=== PATIENT | female | born 1955 | race Caucasian/White ===

== ENCOUNTER 2016-08-03 08:08 | Emergency (ER) | payer OTHER ==
[~2016-08-03] VITALS: Ht 177.8 cm; Wt 85.0 kg
[~2016-08-03 08:08] MED LIST: ENOX40DI8 SUBQ; KLO5T PO; OXYC-466 PO; POLY17PO6 PO; diphenHYDramine PO
[2016-08-03 08:30] VITALS: BP 142/96; PULSE 72; RESP 14; O2SAT 99
--- NOTE | 2016-08-03 08:39 | ED.REPORT ---
HPI-Extremity Problem Lower Date of Service August 03, 2016 ED Provider: Masood Grant MD 61 year old female presents to the ER complaining of a month of right lower extremity pain and swelling. She reports that she had a bad fracture in the affected leg requiring surgery about a year ago, and later developed a blood clot in the leg. At that time she was started on anticoagulant therapy, but admits that she discontinued use out of her anticoagulants. Patient also reports blood clot in her upper extremity secondary to IV placement in the past. She denies fever, chest pain and difficulty breathing, and current anticoagulant use. Recently she was seen by her PCP for similar and was told to have a Venous Doppler done yesterday to rule out DVT, but she missed her appointment. Nursing Notes Stated Complaint: POSS BLOOD CLOT IN RT LEG Chief Complaint: Extremity Trauma Nursing Notes Reviewed: Yes Allergies: Coded Allergies: No Known Allergies (Unverified , 07/30/15) Scheduled Cholecalciferol (Vitamin D3) (Vitamin D) 1,000 Unit Capsule 1,000 UNIT PO DAILY General Time Seen by MD: 08:39 Chief Complaint Other (Right Leg Swelling) Hx Obtained From: Patient Arrived By: Walk-in Onset Occurred: More than a week ago... (1 month) Symptom Duration: Since onset Associated with: Denies: Chest pain, Fever Pertinent Negative: Pt denies other symptoms Similar Sx Previous: Yes Past Medical History Past Medical History Blood clot in the right lower extremity following fracture repair Blood clot in the upper extremity secondary to IV placement Past Surgical History Right Leg Fracture Smoking History Unknown if Ever Smoker Social History Drug Use: Denies drug use Ambulatory Status Independent Review of Systems Constitutional: Denies: Chills, Fever Musculoskeletal: Reports: Extremity pain (Right leg), Extremity swelling ( Right Leg), Denies: Joint pain, Lumbar pain, Neck pain Complete sys rev & neg: except as marked. Respiratory: Denies: Non-productive cough, Shortness of breath Cardiovascular: Denies: Chest pain, Palpitations Physical Exam Initial Vital Signs Vital Signs (First) Date Time Temp Pulse Resp B/P Pulse Ox O2 Delivery O2 Flow Rate FiO2 08/03/16 08:30 36.6 72 14 142/96 99 Room Air Initial VS: Reviewed General/Constitutional: Well-developed, Well-nourished Head / Eyes: Atraumatic, Normocephalic, PERRL Neck: Supple, Non-tender, Full range of motion Respiratory: Breath sounds normal, Clear to auscultation, No respiratory distress Cardiovascular: Regular rate & rhythm, Heart sounds normal, Intact distal pulses Upper Extremities: Vascular intact, Neuro intact, No swelling, No tenderness Skin: Warm, Dry, No cyanosis Neurologic: Alert, Oriented, Nonfocal Psychiatric: Mood/affect normal, Behavior normal, Normal thought content Lower Extremity / Pelvis / MS: Full range of motion, Neurologic intact, Vascular intact Right Leg / Calf: Positive: Swelling present..., Tenderness present... ( medially) Diffuse non-pitting edema of the Right leg. Interpretation & Diagnostics US VEINOUS LEG DUPLEX UNILATERAL, RIGHT IMPRESSION: No evidence of deep venous thrombosis. Dictated by: Marco Cuenca M.D. on 08/03/2016 at 10:30 Approved by: Marco Cuenca M.D. on 08/03/2016 at 10:32 Re-Eval/Medical Decision Med Decision/Clinical Course 61-year-old female started DVT is presenting with right leg pain times one month. Ultrasound negative for DVT. There is no trauma. She has diffuse medial chiang, calf tenderness. Mild. Recommend ibuprofen and follow-up with primary doctor. No chest pain or shortness of breath. Return precautions given. Source of Hx: Old records Re-Evaluation/Progress : Time of Eval: 09:55 Re-Evaluation/Progress Note: Discussed lab and imaging results and plan to discharge. Patient is amenable to the plan. Return precautions given. All other questions addressed. Counseled Regarding: Diagnosis, Lab results, Need for follow-up, When/why to return to ED Discharge & Departure Impression: Primary Impression: Leg pain Disposition: Home Discharge Condition All VS Reviewed: Yes Condition: Stable Patient Instructions: Deep Vein Thrombosis Prevention (DC) Additional Instructions: Your workup today is reassuring. Your ultrasound does not indicate signs of blood clot in your leg. Wear compression stockings. Follow-up with your primary care provider in 1-2 days. Take ibuprofen as directed for pain. Return to the ER if you develop new or worsening pain or swelling, chest pain, cough, shortness of breath, or any other concerning symptoms. Referrals: Airam Shah (PCP) Scribe Attestation Portions of this note were transcribed by Ayo Santacruz. IDr. Grant, personally performed the history, physical exam and medical decision-making; I reviewed and confirmed the accuracy of the information in the transcribed note. Signed by: Shyla Arshad, 08/03/2016 at 11:03 copies to: Airam Shah Ben M MD August 03, 2016 08:39 AOY SANTACRUZ August 03, 2016 08:46
[2016-08-03] MEDS ORDERED: CHOL100045 PO (08:50)
[2016-08-03 10:28] VITALS: BP 135/79; PULSE 69; O2SAT 97
--- NOTE | 2016-08-03 10:33 | DRSVH ---
PROCEDURE: US VEINOUS LEG DUPLEX UNILATERAL, RIGHT INDICATIONS: r/o dvt. h/o dvts TECHNIQUE: Real-time imaging, as well as color and pulse Doppler interrogation, were performed of the lower extr emity deep veins from the inguinal ligament to the popliteal fossa. COMPARISON: [facility] Ultrasound, US, US VENOUS LEG DPLX UNI RT, 01/24/2016, 15:23. FINDINGS: The deep veins are normally compressible, and free of intraluminal thrombus. Color and pu lse Doppler demonstrate normal phasic intraluminal flow. There is normal augmentation response to di stal compression maneuver. The calf veins were not well seen although grossly patent and compressibl e distally. IMPRESSION: No evidence of deep venous thrombosis. Dictated by: Marco Cuenca M.D. on 08/03/2016 at 10:30 Approved by: Marco Cuenca M.D. on 08/03/2016 at 10:32
== END 2016-08-03 10:32 | disposition home or self-care (01) ==
LOC: SED 08:08
DX: M79.661 Pain in right lower leg (principal)